=== PATIENT | female | born 1945 | race Caucasian/White ===

== ENCOUNTER 2018-07-19 00:14 | Outpatient (CLI) | payer MEDICARE ==
[2018-07-19 12:30] LABS: #Eosinphils 0.2 thou/uL (0.0-0.7); #Lymphocytes 1.8 thou/uL (1.20-3.40); #Monocytes 0.5 thou/uL (0.11-0.59); #Neutrophils 3.9 thou/uL (1.40-6.50); %Basophils 0.5 % (0.0-1.0); %Eosinophils 3.3 % (0.0-10.0); %Lymphocytes 28.6 % (21.0-51.0); %Monocytes 7.5 % (0.0-10.0); %Neutrophils 60.2 % (42.0-75.0); Hemoglobin 13.3 g/dL (12.0-16.0); Mean Corpuscular HGB CONC 32.7 g/dL (32.0-36.0); Mean Corpuscular Hemoglobin 31.7 pg (27.0-31.0); Mean Platelet Volume 7.4 fL (7.4-10.4); Platelet Count 233 thou/uL (130-400); RBC Distribution Width 11.6 % (11.5-14.5); White Blood Cell (WBC) Count 6.4 thou/uL (4.8-10.8)
[2018-07-19 13:03] LABS: ALT (SGPT) 27 U/L (8-55); AST (SGOT) 37 U/L (5-34); Albumin 4.5 g/dL (3.4-4.8); Alkaline Phosphatase 63 U/L (40-150); Anion Gap 16 mmol/L (10-20); BUN (Urea Nitrogen) 18 mg/dL (9.8-20.1); Bilirubin, Total 0.5 mg/dL (0.2-1.2); Calc. Creatinine Clearance 0 mL/min (70-130); Calcium 9.9 mg/dL (7.8-10.44); Carbon Dioxide 23 mmol/L (23-31); Chloride 105 mmol/L (98-107); Estimated GFR-MDRD 75; Globulin 2.8 g/dL (2.4-3.5); Glucose 73 mg/dL (83-110); Potassium 4.6 mmol/L (3.5-5.1); Protein, Total 7.3 g/dL (6.0-8.3); Sodium 139 mmol/L (136-145)
[2018-07-19 13:10] LABS: PTT 28.5 SEC (22.9-36.1); Prothrombin Time 12.8 SEC (12.0-14.7)
== END 2018-07-19 00:15 | disposition home or self-care (01) ==
LOC: LABBT 00:14
PROVIDERS: ATTEND Internal Medicine Cardiovascular Disease
DX: Z01.812 Encounter for preprocedural laboratory examination (principal)
CPT/HCPCS: 80053; 85025; 85610; 85730

== ENCOUNTER 2018-07-26 05:58 | Day surgery (SDC) | payer MEDICARE ==
[2018-07-19 11:24] VITALS: BMI 34.4
[2018-07-26 07:00] LABS: Cardiac Risk 4.6 (Less than 4.5)
[2018-07-26] MEDS ORDERED: Midazolam HCl 2 mg/2 ml Vial ONE (07:23)
[2018-07-26] MEDS ORDERED: Heparin 10,000 UNITS/1 ML VIAL ONE (07:23)
[2018-07-26] MEDS ORDERED: Fentanyl 100 MCG/2 ML VIAL ONE (07:23)
[2018-07-26] MEDS ORDERED: Verapamil 5 MG/2 ML VIAL ONE (07:24)
[2018-07-26] MEDS ORDERED: Nitroglycerin 100MG/250ML BOT 250 ML ONE (07:24)
[2018-07-26] MEDS ORDERED: Iopamidol 370 76% 100 ML VIAL ONE (10:31)
== END 2018-07-26 11:12 | disposition home or self-care (01) ==
LOC: CCL 05:58
PROVIDERS: ATTEND Internal Medicine Cardiovascular Disease
DX: I42.0 Dilated cardiomyopathy (principal); I10 Essential (primary) hypertension; I44.7 Left bundle-branch block, unspecified; E11.9 Type 2 diabetes mellitus without complications; E78.5 Hyperlipidemia, unspecified; E78.00 Pure hypercholesterolemia, unspecified; Z79.82 Long term (current) use of aspirin; Z79.84 Long term (current) use of oral hypoglycemic drugs; Z79.899 Other long term (current) drug therapy
CPT/HCPCS: 36415; 80061; 93458; 99152; C1769; J1644; J2250; J3010; Q9967

== ENCOUNTER 2022-10-28 09:06 | Inpatient (IN) | payer MEDICARE ==
[2022-10-28 11:04] LABS: #Basophils 0.1 thou/uL (0.0-0.2); #Eosinphils 0.5 thou/uL (0.0-0.7); #Monocytes 0.7 thou/uL (0.11-0.59); #Neutrophils 4.4 thou/uL (1.40-6.50); %Basophils 0.8 % (0.0-1.0); %Eosinophils 6.7 % (0.0-10.0); %Lymphocytes 20.4 % (21.0-51.0); %Monocytes 9.8 % (0.0-10.0); %Neutrophils 61.9 % (42.0-75.0); Hemoglobin 11.3 g/dL (12.0-16.0); Mean Corpuscular HGB CONC 32.8 g/dL (32.0-36.0); Mean Corpuscular Hemoglobin 32.1 pg (27.0-31.0); Mean Platelet Volume 9.6 fL (7.4-10.4); Platelet Count 231 10x3/uL (130-400); RBC Distribution Width 12.5 % (11.5-14.5); Red Blood Cell (RBC) Count 3.52 mill/uL (4.20-5.40); White Blood Cell (WBC) Count 7.2 10x3/uL (4.8-10.8)
[2022-10-28 11:27] LABS: ALT (SGPT) 43 U/L (8-55); AST (SGOT) 46 U/L (5-34); Albumin 4.1 g/dL (3.4-4.8); Alkaline Phosphatase 82 U/L (40-110); Anion Gap 19 mmol/L (10-20); BUN (Urea Nitrogen) 42 mg/dL (9.8-20.1); Bilirubin, Total 0.4 mg/dL (0.2-1.2); Calc. Creatinine Clearance 0 mL/min (70-130); Calcium 9.6 mg/dL (7.8-10.44); Carbon Dioxide 18 mmol/L (23-31); Chloride 107 mmol/L (98-107); Estimated GFR 34; Globulin 2.9 g/dL (2.4-3.5); Glucose 171 mg/dL (83-110); Potassium 5.4 mmol/L (3.5-5.1); Sodium 139 mmol/L (136-145)
[2022-10-28] MEDS ORDERED: Morphine 4 MG/ML VIAL ONE (12:43)
[2022-10-28] MEDS ORDERED: cefTRIAXone (ROCEPHIN) 2 GM VIAL ONE (12:43)
[2022-10-28] MEDS ORDERED: Ondansetron PF 4 MG/2 ML Vial ONE (12:43)
[2022-10-28] MEDS ORDERED: Ketorolac Tromethamine 30 MG/ML VIAL ONE (12:43)
[2022-10-28] MEDS ORDERED: Vancomycin 1 GM/200 ML (FROZEN) BAG ONE (13:13)
[2022-10-28 14:21] LABS: Bacteria/HPF 2+ HPF (None Seen); Bilirubin Negative (Negative); Blood, Urine Negative (Negative); Clarity Turbid (Clear); Glucose, Urine (Dipstick) Normal (Negative); Ketone, Urine Negative (Negative); Leukocyte 500 Leu/uL (Negative); Nitrite Negative (Negative); Protein, Urine (Dipstick) Negative (Neg-Trace); RBC/HPF 0-3 HPF (0-3); Specific Gravity, Urine 1.008 (1.002-1.036); Squamous Epithelial 0-3 HPF (0-3); Urobilinogen Normal mg/dL (Less than 2)
[2022-10-28] MEDS ORDERED: HumaLOG 300 UNITS/3 ML VIAL SC PRN (14:30)
[2022-10-28] MEDS ORDERED: Dextrose 5% in Water 1,000 ML IV PRN (14:30)
[2022-10-28] MEDS ORDERED: Glucagon 1 MG/ML KIT IM PRN (14:30)
[2022-10-28] MEDS ORDERED: Dextrose 50% Abboject 50 ML SYRINGE SLOW IVP PRN (14:30)
[2022-10-28] MEDS ORDERED: Acetaminophen 650 MG Suppository PR PRN (14:30)
[2022-10-28] MEDS ORDERED: [UNRECOGNIZED DRUG - REMARK] IVPB PRN (14:33)
[2022-10-28] MEDS ORDERED: Lactated Ringer's 1,000 ML IV SCH (14:45)
[2022-10-28] MEDS ORDERED: Piperacillin/Tazobactam 3.375 GM in Sodium Chloride 0.9% 100 ML IVPB SCH (15:30)
[2022-10-28] MEDS: Heparin 5,000 UNITS/ML VIAL SC SCH ×2 (16:09→20:36)
[2022-10-28] MEDS: Lactated Ringer's 1,000 ML IV SCH (16:10)
[2022-10-28 17:11] LABS: Hemoglobin A1c 6.6 % (4.0-6.0)
[2022-10-28] MEDS ORDERED: Piperacillin/Tazobactam 4.5 GM in Sodium Chloride 0.9% 100 ML IVPB SCH (18:00)
[2022-10-28] MEDS ORDERED: Vancomycin 1 GM in Premix Bag 1 BAG IVPB SCH (20:00)
[2022-10-28] MEDS: Piperacillin/Tazobactam 3.375 GM in Sodium Chloride 0.9% 100 ML IVPB SCH (20:35)
[2022-10-28] MEDS: Venlafaxine HCl XR 75 MG CAP PO SCH (20:36)
[2022-10-28] MEDS ORDERED: Vancomycin HCl 750 MG in Sodium Chloride 0.9% 250 ML 250 ML IVPB SCH (21:00)
[2022-10-28] MEDS: HYDROcodone/Acetaminophen 10/325 mg Tablet PO PRN (21:53)
[2022-10-29] MEDS: Lactated Ringer's 1,000 ML IV SCH (05:23)
[2022-10-29] MEDS: Piperacillin/Tazobactam 3.375 GM in Sodium Chloride 0.9% 100 ML IVPB SCH ×3 (05:24→21:21)
[2022-10-29 06:19] LABS: #Basophils 0.1 thou/uL (0.0-0.2); #Eosinphils 0.6 thou/uL (0.0-0.7); #Monocytes 0.8 thou/uL (0.11-0.59); #Neutrophils 3.5 thou/uL (1.40-6.50); %Basophils 1.1 % (0.0-1.0); %Eosinophils 9.4 % (0.0-10.0); %Lymphocytes 24.7 % (21.0-51.0); %Monocytes 11.7 % (0.0-10.0); %Neutrophils 52.6 % (42.0-75.0); Mean Corpuscular HGB CONC 31.7 g/dL (32.0-36.0); Mean Corpuscular Hemoglobin 32.2 pg (27.0-31.0); Mean Platelet Volume 9.7 fL (7.4-10.4); Platelet Count 221 10x3/uL (130-400); RBC Distribution Width 12.7 % (11.5-14.5); Red Blood Cell (RBC) Count 3.11 mill/uL (4.20-5.40); White Blood Cell (WBC) Count 6.6 10x3/uL (4.8-10.8)
[2022-10-29 06:25] LABS: Mean Corpuscular Volume 101.3 fl (78.0-98.0)
[2022-10-29 06:39] LABS: Anion Gap 14 mmol/L (10-20); BUN (Urea Nitrogen) 38 mg/dL (9.8-20.1); Calc. Creatinine Clearance 55 mL/min (70-130); Calcium 8.6 mg/dL (7.8-10.44); Carbon Dioxide 21 mmol/L (23-31); Chloride 108 mmol/L (98-107); Estimated GFR 36; Glucose 114 mg/dL (83-110); Sodium 138 mmol/L (136-145)
[2022-10-29] MEDS: Heparin 5,000 UNITS/ML VIAL SC SCH ×3 (08:11→21:20)
[2022-10-29] MEDS ORDERED: Lactated Ringer's 1,000 ML IV SCH (10:42)
[2022-10-29] MEDS: HYDROcodone/Acetaminophen 10/325 mg Tablet PO PRN (12:00)
[2022-10-29] MEDS: Sodium Chloride 0.9% 1,000 ML IV SCH ×2 (12:07→21:20)
[2022-10-29] MEDS: Lorazepam 2 MG/ML VIAL SLOW IVP PRN (13:25)
[2022-10-29] MEDS: VANCOMYCIN 1.25 GM/250 ML BAG 1.25 GM in Premix Bag 1 BAG IVPB SCH (13:25)
[2022-10-29] MEDS ORDERED: Nystatin Powder 15 GM BOT TOP PRN (16:13)
[2022-10-29] MEDS ORDERED: Fluconazole 100 MG TAB PO SCH (16:15)
[2022-10-29] MEDS: QUEtiapine 25 MG TAB PO SCH (21:21)
[2022-10-29] MEDS: Venlafaxine HCl XR 75 MG CAP PO SCH (21:21)
[2022-10-29] MEDS: Aspirin 81 mg Enteric Coated Tablet PO SCH (21:23)
[2022-10-30] MEDS: Piperacillin/Tazobactam 3.375 GM in Sodium Chloride 0.9% 100 ML IVPB SCH ×3 (06:09→20:38)
[2022-10-30] MEDS: Sodium Chloride 0.9% 1,000 ML IV SCH ×3 (06:09→12:56)
[2022-10-30 08:06] LABS: #Eosinphils 0.5 thou/uL (0.0-0.7); #Monocytes 0.5 thou/uL (0.11-0.59); #Neutrophils 3.2 thou/uL (1.40-6.50); %Basophils 0.7 % (0.0-1.0); %Eosinophils 8.6 % (0.0-10.0); %Lymphocytes 23.9 % (21.0-51.0); %Monocytes 8.7 % (0.0-10.0); %Neutrophils 57.4 % (42.0-75.0); Hemoglobin 8.7 g/dL (12.0-16.0); Mean Corpuscular HGB CONC 31.4 g/dL (32.0-36.0); Mean Corpuscular Hemoglobin 31.9 pg (27.0-31.0); Mean Corpuscular Volume 101.5 fl (78.0-98.0); Mean Platelet Volume 9.5 fL (7.4-10.4); Platelet Count 183 10x3/uL (130-400); Red Blood Cell (RBC) Count 2.73 mill/uL (4.20-5.40); White Blood Cell (WBC) Count 5.6 10x3/uL (4.8-10.8)
[2022-10-30 08:29] LABS: Anion Gap 13 mmol/L (10-20); BUN (Urea Nitrogen) 27 mg/dL (9.8-20.1); Calc. Creatinine Clearance 73 mL/min (70-130); Calcium 8.4 mg/dL (7.8-10.44); Carbon Dioxide 21 mmol/L (23-31); Chloride 112 mmol/L (98-107); Estimated GFR 50; Glucose 105 mg/dL (83-110); Potassium 4.5 mmol/L (3.5-5.1); Sodium 141 mmol/L (136-145)
[2022-10-30] MEDS: Heparin 5,000 UNITS/ML VIAL SC SCH ×3 (09:39→20:38)
[2022-10-30] MEDS: Fluconazole 100 MG TAB PO SCH (09:39)
[2022-10-30] MEDS: VANCOMYCIN 1.25 GM/250 ML BAG 1.25 GM in Premix Bag 1 BAG IVPB SCH (12:56)
[2022-10-30 12:58] LABS: Vancomycin, Trough 13.8 ug/mL
[2022-10-30] MEDS: Ondansetron PF 4 MG/2 ML Vial IVP PRN (18:25)
[2022-10-30] MEDS: Venlafaxine HCl XR 75 MG CAP PO SCH (20:36)
[2022-10-30] MEDS: QUEtiapine 25 MG TAB PO SCH (20:37)
[2022-10-30] MEDS: Aspirin 81 mg Enteric Coated Tablet PO SCH (20:37)
[2022-10-31] MEDS: Sodium Chloride 0.9% 1,000 ML IV SCH ×2 (06:25→17:05)
[2022-10-31] MEDS: Piperacillin/Tazobactam 3.375 GM in Sodium Chloride 0.9% 100 ML IVPB SCH ×3 (07:18→21:12)
[2022-10-31] MEDS: Heparin 5,000 UNITS/ML VIAL SC SCH ×3 (07:18→21:13)
[2022-10-31] MEDS: Fluconazole 100 MG TAB PO SCH (07:18)
[2022-10-31 08:33] LABS: Anion Gap 15 mmol/L (10-20); BUN (Urea Nitrogen) 14 mg/dL (9.8-20.1); Calc. Creatinine Clearance 94 mL/min (70-130); Calcium 8.8 mg/dL (7.8-10.44); Carbon Dioxide 17 mmol/L (23-31); Chloride 111 mmol/L (98-107); Estimated GFR 68; Glucose 160 mg/dL (83-110); Potassium 4.3 mmol/L (3.5-5.1); Sodium 139 mmol/L (136-145)
[2022-10-31] MEDS ORDERED: Metoprolol Tartrate 5 MG/5 ML VIAL IVP SCH (09:45)
[2022-10-31] MEDS: VANCOMYCIN 1.25 GM/250 ML BAG 1.25 GM in Premix Bag 1 BAG IVPB SCH (12:28)
[2022-10-31] MEDS: Ondansetron PF 4 MG/2 ML Vial IVP PRN (14:34)
[2022-10-31] MEDS: Lorazepam 2 MG/ML VIAL SLOW IVP PRN (17:04)
[2022-10-31] MEDS: Venlafaxine HCl XR 75 MG CAP PO SCH (21:12)
[2022-10-31] MEDS: QUEtiapine 25 MG TAB PO SCH (21:12)
[2022-10-31] MEDS: Aspirin 81 mg Enteric Coated Tablet PO SCH (21:14)
[2022-11-01] MEDS ORDERED: Metoprolol Tartrate 5 MG/5 ML VIAL IVP SCH (03:49)
[2022-11-01] MEDS: Sodium Chloride 0.9% 1,000 ML IV SCH (04:58)
[2022-11-01] MEDS: Piperacillin/Tazobactam 3.375 GM in Sodium Chloride 0.9% 100 ML IVPB SCH ×3 (05:00→20:10)
[2022-11-01] MEDS: Heparin 5,000 UNITS/ML VIAL SC SCH ×3 (08:21→20:10)
[2022-11-01] MEDS ORDERED: Furosemide 40 MG/4 ML VIAL SLOW IVP SCH ×2 (09:00→15:30)
[2022-11-01] MEDS: Diltiazem 125 MG in Sodium Chloride 0.9% 100 ML IVPB SCH (09:49)
[2022-11-01 10:26] LABS: #Basophils 0.1 thou/uL (0.0-0.2); #Eosinphils 0.4 thou/uL (0.0-0.7); #Monocytes 0.9 thou/uL (0.11-0.59); #Neutrophils 9.6 thou/uL (1.40-6.50); %Basophils 0.6 % (0.0-1.0); %Eosinophils 3.2 % (0.0-10.0); %Lymphocytes 9.6 % (21.0-51.0); %Monocytes 7.4 % (0.0-10.0); %Neutrophils 78.5 % (42.0-75.0); Hemoglobin 10.6 g/dL (12.0-16.0); Mean Corpuscular HGB CONC 31.5 g/dL (32.0-36.0); Mean Corpuscular Hemoglobin 32.5 pg (27.0-31.0); Mean Corpuscular Volume 103.4 fl (78.0-98.0); Mean Platelet Volume 9.6 fL (7.4-10.4); Platelet Count 224 10x3/uL (130-400); RBC Distribution Width 13.1 % (11.5-14.5); Red Blood Cell (RBC) Count 3.26 mill/uL (4.20-5.40); White Blood Cell (WBC) Count 12.2 10x3/uL (4.8-10.8)
[2022-11-01 10:43] LABS: Anion Gap 12 mmol/L (10-20); BUN (Urea Nitrogen) 10 mg/dL (9.8-20.1); Calc. Creatinine Clearance 93 mL/min (70-130); Calcium 8.8 mg/dL (7.8-10.44); Carbon Dioxide 20 mmol/L (23-31); Chloride 113 mmol/L (98-107); Estimated GFR 68; Glucose 156 mg/dL (83-110); Potassium 4.3 mmol/L (3.5-5.1); Sodium 141 mmol/L (136-145)
[2022-11-01 11:04] LABS: Free T4 (Free Thyroxine) 0.97 ng/dL (0.70-1.48); Thyroid Stimulating Hormone 2.6105 uIU/mL (0.35-4.94)
[2022-11-01 13:44] LABS: Vancomycin, Trough 7.5 ug/mL
[2022-11-01] MEDS: Vancomycin 1.5 GRAM/300 ML BAG 1.5 GM in Premix Bag 1 BAG IVPB SCH (14:50)
[2022-11-01] MEDS: Lorazepam 2 MG/ML VIAL SLOW IVP PRN (15:19)
[2022-11-01] MEDS: VANCOMYCIN 1.25 GM/250 ML BAG 1.25 GM in Premix Bag 1 BAG IVPB SCH (16:31)
[2022-11-01] MEDS ORDERED: Digoxin 0.5 MG/2 ML AMP SLOW IVP SCH (17:00)
[2022-11-01] MEDS: Aspirin 81 mg Enteric Coated Tablet PO SCH (20:10)
[2022-11-01] MEDS: QUEtiapine 25 MG TAB PO SCH (20:10)
[2022-11-01] MEDS: Venlafaxine HCl XR 75 MG CAP PO SCH (20:10)
[2022-11-02 04:54] LABS: #Basophils 0.1 thou/uL (0.0-0.2); #Eosinphils 0.4 thou/uL (0.0-0.7); #Monocytes 1.2 thou/uL (0.11-0.59); #Neutrophils 8.2 thou/uL (1.40-6.50); %Basophils 0.7 % (0.0-1.0); %Eosinophils 3.3 % (0.0-10.0); %Lymphocytes 13.7 % (21.0-51.0); %Monocytes 10.6 % (0.0-10.0); %Neutrophils 71.2 % (42.0-75.0); Hemoglobin 10.5 g/dL (12.0-16.0); Mean Corpuscular HGB CONC 30.4 g/dL (32.0-36.0); Mean Corpuscular Hemoglobin 31.6 pg (27.0-31.0); Mean Corpuscular Volume 103.9 fl (78.0-98.0); Mean Platelet Volume 10.4 fL (7.4-10.4); Platelet Count 177 10x3/uL (130-400); RBC Distribution Width 13.2 % (11.5-14.5); Red Blood Cell (RBC) Count 3.32 mill/uL (4.20-5.40); White Blood Cell (WBC) Count 11.5 10x3/uL (4.8-10.8)
[2022-11-02 05:24] LABS: Anion Gap 14 mmol/L (10-20); BUN (Urea Nitrogen) 10 mg/dL (9.8-20.1); Calc. Creatinine Clearance 92 mL/min (70-130); Calcium 8.8 mg/dL (7.8-10.44); Carbon Dioxide 20 mmol/L (23-31); Chloride 109 mmol/L (98-107); Estimated GFR 67; Glucose 118 mg/dL (83-110); Potassium 4.2 mmol/L (3.5-5.1); Sodium 139 mmol/L (136-145)
[2022-11-02] MEDS: Piperacillin/Tazobactam 3.375 GM in Sodium Chloride 0.9% 100 ML IVPB SCH ×3 (06:19→21:12)
[2022-11-02] MEDS: Diltiazem 125 MG in Sodium Chloride 0.9% 100 ML IVPB SCH (08:35)
[2022-11-02] MEDS: Heparin 5,000 UNITS/ML VIAL SC SCH (08:42)
[2022-11-02] MEDS ORDERED: Furosemide 40 MG/4 ML VIAL SLOW IVP SCH (09:15)
[2022-11-02] MEDS ORDERED: Ipratropium/Albuterol 3 ML NEB NEB SCH (09:15)
[2022-11-02] MEDS ORDERED: Ketamine In 0.9 % NaCl 50 MG/5 ML SYRINGE ONE (12:23)
[2022-11-02] MEDS ORDERED: Midazolam HCl 2 mg/2 ml Vial ONE (12:23)
[2022-11-02] MEDS ORDERED: Lidocaine 1% PF 5 ML VIAL ONE (12:32)
[2022-11-02] MEDS ORDERED: PROPOFOL 200 MG/20 ML VIAL ONE (12:32)
[2022-11-02] MEDS ORDERED: Ipratropium/Albuterol 3 ML NEB ONE (13:20)
[2022-11-02] MEDS: Vancomycin 1.5 GRAM/300 ML BAG 1.5 GM in Premix Bag 1 BAG IVPB SCH (16:31)
[2022-11-02] MEDS ORDERED: Ipratropium/Albuterol 3 ML NEB NEB PRN (17:53)
[2022-11-02] MEDS: Venlafaxine HCl XR 75 MG CAP PO SCH (21:13)
[2022-11-02] MEDS: HYDROcodone/Acetaminophen 10/325 mg Tablet PO PRN (21:13)
[2022-11-02] MEDS: Spironolactone 25 MG TAB PO SCH (21:13)
[2022-11-02] MEDS: QUEtiapine 25 MG TAB PO SCH (21:13)
[2022-11-03] MEDS: Piperacillin/Tazobactam 3.375 GM in Sodium Chloride 0.9% 100 ML IVPB SCH ×3 (05:16→20:58)
[2022-11-03] MEDS ORDERED: Iopamidol-370 76% 500 ML MDV (1 ML CHARGE) ONE (08:45)
[2022-11-03] MEDS ORDERED: Albumin 25% 25 GM/100 ML BOT IVPB SCH (09:15)
[2022-11-03] MEDS ORDERED: Furosemide 20 MG/2 ML VIAL SLOW IVP SCH (09:15)
[2022-11-03] MEDS ORDERED: fentaNYL PF 100 MCG/2 ML SYRINGE ONE (12:37)
[2022-11-03] MEDS ORDERED: Bupivacaine PF 0.5% 30 ML VIAL ONE (12:49)
[2022-11-03] MEDS ORDERED: Bacitracin Zinc Ointment 30 gm TUBE ONE (12:50)
[2022-11-03] MEDS ORDERED: Sodium Chloride 0.9% 100 ML ONE (13:01)
[2022-11-03] MEDS ORDERED: Piperacillin/Tazobactam 3.375 GM VIAL ONE (13:01)
[2022-11-03 14:14] LABS: Actual Bicarbonate (HCO3a) 25.1 mEq/L (22-28); Base Excess (BEa) -0.3 mEq/L (-2.0 to +3.0); CO2 Tension 44.4 mmHg (35.0-45.0); Calcium, Ionized (arterial) 1.19 mmol/L (1.12-1.30); Carboxyhemoglobin (COHb) 0.1 gm% (0.0-3.0); Hematocrit-ABG 35 % (36.0-47.0); Hemoglobin (Hb) 11.9 g/dL (12.0-16.0); O2 Tension (PaO2), arterial 171.2 mmHg (> 70.0); Potassium - ABG Lab 3.59 mmol/L (3.70-5.30); pH, Arterial 7.371 (7.35-7.45)
[2022-11-03 14:21] LABS: #Basophils 0.1 thou/uL (0.0-0.2); #Eosinphils 0.7 thou/uL (0.0-0.7); #Monocytes 0.7 thou/uL (0.11-0.59); #Neutrophils 5.7 thou/uL (1.40-6.50); %Basophils 0.8 % (0.0-1.0); %Eosinophils 7.5 % (0.0-10.0); %Lymphocytes 17.2 % (21.0-51.0); %Monocytes 7.5 % (0.0-10.0); %Neutrophils 66.5 % (42.0-75.0); Hemoglobin 10.3 g/dL (12.0-16.0); Mean Corpuscular HGB CONC 32.3 g/dL (32.0-36.0); Mean Corpuscular Hemoglobin 32.8 pg (27.0-31.0); Mean Corpuscular Volume 101.6 fl (78.0-98.0); Mean Platelet Volume 10.4 fL (7.4-10.4); Platelet Count 210 10x3/uL (130-400); RBC Distribution Width 13.6 % (11.5-14.5); Red Blood Cell (RBC) Count 3.14 mill/uL (4.20-5.40); White Blood Cell (WBC) Count 8.6 10x3/uL (4.8-10.8)
[2022-11-03 14:22] LABS: Puncture Site RRA
[2022-11-03 14:37] LABS: INR-International Normal Ratio 1.2; Prothrombin Time 15.4 sec (12.0-14.7)
[2022-11-03 14:38] LABS: PTT 42.6 sec (22.9-36.1)
[2022-11-03 14:39] LABS: D-Dimer Test 1.51 *mcg/mL (0.27-0.43)
[2022-11-03] MEDS ORDERED: Vancomycin (BATCH) 1.5 GRAM/300 ML BAG ONE (15:00)
[2022-11-03 15:05] LABS: CKMB 1.4 ng/mL (0-6.6)
[2022-11-03] MEDS: Vancomycin 1.5 GRAM/300 ML BAG 1.5 GM in Premix Bag 1 BAG IVPB SCH (15:08)
[2022-11-03] MEDS ORDERED: Furosemide 40 MG/4 ML VIAL ONE (15:36)
[2022-11-03] MEDS ORDERED: Furosemide 40 MG/4 ML VIAL SLOW IVP SCH (16:15)
[2022-11-03 18:42] LABS: SARS-CoV-2 NAA Rapid Test Not Detected (NotDetected)
[2022-11-03 20:30] LABS: Calcium 9.3 mg/dL (7.8-10.44); Chloride 107 mmol/L (98-107); Potassium 3.9 mmol/L (3.5-5.1); Sodium 140 mmol/L (136-145)
[2022-11-03 20:31] LABS: Glucose 139 mg/dL (83-110)
[2022-11-03 20:32] LABS: Anion Gap 16 mmol/L (10-20); Carbon Dioxide 21 mmol/L (23-31)
[2022-11-03 20:34] LABS: Calc. Creatinine Clearance 93 mL/min (70-130); Estimated GFR 61
[2022-11-03 20:35] LABS: BUN (Urea Nitrogen) 16 mg/dL (9.8-20.1)
[2022-11-03] MEDS: QUEtiapine 25 MG TAB PO SCH (20:58)
[2022-11-03] MEDS: Lorazepam 2 MG/ML VIAL SLOW IVP PRN (20:58)
[2022-11-03] MEDS: Spironolactone 25 MG TAB PO SCH (20:58)
[2022-11-04] MEDS: Venlafaxine HCl XR 75 MG CAP PO SCH ×2 (00:30→20:32)
[2022-11-04] MEDS: Albumin 25% 25 GM/100 ML BOT IVPB SCH ×4 (00:30→18:07)
[2022-11-04 03:59] LABS: #Basophils 0.1 thou/uL (0.0-0.2); #Eosinphils 0.5 thou/uL (0.0-0.7); #Monocytes 0.8 thou/uL (0.11-0.59); #Neutrophils 7.4 thou/uL (1.40-6.50); %Basophils 0.5 % (0.0-1.0); %Eosinophils 5.2 % (0.0-10.0); %Lymphocytes 13.2 % (21.0-51.0); %Monocytes 8.1 % (0.0-10.0); %Neutrophils 72.5 % (42.0-75.0); Mean Corpuscular HGB CONC 33.1 g/dL (32.0-36.0); Mean Corpuscular Hemoglobin 32.8 pg (27.0-31.0); Mean Platelet Volume 10.2 fL (7.4-10.4); Platelet Count 208 10x3/uL (130-400); RBC Distribution Width 13.1 % (11.5-14.5); Red Blood Cell (RBC) Count 3.05 mill/uL (4.20-5.40); White Blood Cell (WBC) Count 10.3 10x3/uL (4.8-10.8)
[2022-11-04 04:20] LABS: Anion Gap 15 mmol/L (10-20); BUN (Urea Nitrogen) 17 mg/dL (9.8-20.1); Calc. Creatinine Clearance 93 mL/min (70-130); Calcium 9.2 mg/dL (7.8-10.44); Carbon Dioxide 26 mmol/L (23-31); Chloride 105 mmol/L (98-107); Estimated GFR 61; Glucose 109 mg/dL (83-110); Potassium 3.6 mmol/L (3.5-5.1); Sodium 142 mmol/L (136-145)
[2022-11-04] MEDS: Piperacillin/Tazobactam 3.375 GM in Sodium Chloride 0.9% 100 ML IVPB SCH ×3 (04:25→22:54)
[2022-11-04] MEDS ORDERED: Furosemide 40 MG/4 ML VIAL SLOW IVP SCH ×2 (09:00→20:00)
[2022-11-04] MEDS: Vancomycin 1.5 GRAM/300 ML BAG 1.5 GM in Premix Bag 1 BAG IVPB SCH (14:42)
[2022-11-04] MEDS: Lorazepam 2 MG/ML VIAL SLOW IVP PRN (15:50)
[2022-11-04] MEDS: hydrALAZINE 20 MG/ML VIAL SLOW IVP PRN (18:07)
[2022-11-04] MEDS ORDERED: Labetalol HCl 100 MG/20 ML VIAL ONE (19:06)
[2022-11-04] MEDS ORDERED: Labetalol HCl 100 MG/20 ML VIAL SLOW IVP SCH (19:15)
[2022-11-04 20:22] LABS: Anion Gap 18 mmol/L (10-20); BUN (Urea Nitrogen) 18 mg/dL (9.8-20.1); Calc. Creatinine Clearance 92 mL/min (70-130); Calcium 9.5 mg/dL (7.8-10.44); Carbon Dioxide 24 mmol/L (23-31); Chloride 105 mmol/L (98-107); Estimated GFR 60; Glucose 221 mg/dL (83-110); Magnesium 1.8 mg/dL (1.6-2.6); Potassium 3.6 mmol/L (3.5-5.1); Sodium 143 mmol/L (136-145)
[2022-11-04] MEDS: QUEtiapine 25 MG TAB PO SCH (20:29)
[2022-11-04] MEDS: Spironolactone 25 MG TAB PO SCH (20:29)
[2022-11-04] MEDS ORDERED: Potassium Chloride 20 MEQ in Premix Bag 1 BAG IVPB SCH (21:00)
[2022-11-04] MEDS ORDERED: Magnesium 2 GM/50 ML(in water) 2 GM in Premix Bag 1 BAG IVPB SCH (21:00)
[2022-11-05 04:28] LABS: Anion Gap 15 mmol/L (10-20); BUN (Urea Nitrogen) 17 mg/dL (9.8-20.1); Calc. Creatinine Clearance 98 mL/min (70-130); Calcium 9.3 mg/dL (7.8-10.44); Carbon Dioxide 28 mmol/L (23-31); Chloride 105 mmol/L (98-107); Estimated GFR 65; Glucose 152 mg/dL (83-110); Potassium 3.6 mmol/L (3.5-5.1); Sodium 144 mmol/L (136-145)
[2022-11-05] MEDS: Piperacillin/Tazobactam 3.375 GM in Sodium Chloride 0.9% 100 ML IVPB SCH ×3 (04:58→21:38)
[2022-11-05] MEDS ORDERED: Potassium Chloride 20 MEQ TAB PO SCH (09:00)
[2022-11-05] MEDS: Furosemide 40 MG/4 ML VIAL SLOW IVP SCH ×2 (09:41→21:37)
[2022-11-05 14:31] LABS: Vancomycin, Trough 13.2 ug/mL
[2022-11-05] MEDS: Vancomycin 1.5 GRAM/300 ML BAG 1.5 GM in Premix Bag 1 BAG IVPB SCH (18:25)
[2022-11-05] MEDS ORDERED: Furosemide 40 MG/4 ML VIAL SLOW IVP SCH (18:45)
[2022-11-05] MEDS ORDERED: hydrOXYzine 25 MG TAB PO SCH (18:45)
[2022-11-05 19:10] LABS: Troponin I 0.062 ng/mL (< 0.028)
[2022-11-05] MEDS: QUEtiapine 25 MG TAB PO SCH (21:37)
[2022-11-05] MEDS: Spironolactone 25 MG TAB PO SCH (21:37)
[2022-11-05] MEDS: Venlafaxine HCl XR 75 MG CAP PO SCH (21:37)
[2022-11-05 22:02] LABS: Troponin I 0.068 ng/mL (< 0.028)
[2022-11-06 01:26] LABS: Troponin I 0.098 ng/mL (< 0.028)
[2022-11-06 05:18] LABS: Anion Gap 13 mmol/L (10-20); BUN (Urea Nitrogen) 14 mg/dL (9.8-20.1); Calc. Creatinine Clearance 101 mL/min (70-130); Calcium 9.5 mg/dL (7.8-10.44); Carbon Dioxide 33 mmol/L (23-31); Chloride 100 mmol/L (98-107); Estimated GFR 68; Glucose 115 mg/dL (83-110); Sodium 143 mmol/L (136-145)
[2022-11-06] MEDS: Piperacillin/Tazobactam 3.375 GM in Sodium Chloride 0.9% 100 ML IVPB SCH ×2 (05:38→15:27)
[2022-11-06] MEDS: Furosemide 40 MG/4 ML VIAL SLOW IVP SCH ×2 (09:21→20:48)
[2022-11-06] MEDS: hydrALAZINE 20 MG/ML VIAL SLOW IVP PRN (12:03)
[2022-11-06] MEDS: Potassium Chloride 20 MEQ TAB PO SCH ×2 (12:04→15:26)
[2022-11-06] MEDS ORDERED: Regadenoson 0.4 MG/5 ML SYRINGE ONE (13:22)
[2022-11-06] MEDS ORDERED: hydrALAZINE 25 MG TAB PO SCH (15:45)
[2022-11-06] MEDS: hydrALAZINE 25 MG TAB PO SCH (20:48)
[2022-11-06] MEDS: QUEtiapine 25 MG TAB PO SCH (20:51)
[2022-11-06] MEDS: Venlafaxine HCl XR 75 MG CAP PO SCH (20:51)
[2022-11-06] MEDS: Spironolactone 25 MG TAB PO SCH (20:51)
[2022-11-06] MEDS: Vancomycin 1.5 GRAM/300 ML BAG 1.5 GM in Premix Bag 1 BAG IVPB SCH (21:50)
[2022-11-07] MEDS: Piperacillin/Tazobactam 3.375 GM in Sodium Chloride 0.9% 100 ML IVPB SCH ×4 (00:11→22:49)
[2022-11-07 04:53] LABS: #Basophils 0.1 thou/uL (0.0-0.2); #Eosinphils 0.7 thou/uL (0.0-0.7); #Monocytes 0.7 thou/uL (0.11-0.59); #Neutrophils 4.3 thou/uL (1.40-6.50); %Basophils 0.9 % (0.0-1.0); %Eosinophils 9.9 % (0.0-10.0); %Lymphocytes 16.9 % (21.0-51.0); %Monocytes 9.9 % (0.0-10.0); Hemoglobin 9.7 g/dL (12.0-16.0); Mean Corpuscular HGB CONC 33.2 g/dL (32.0-36.0); Mean Corpuscular Hemoglobin 32.3 pg (27.0-31.0); Mean Corpuscular Volume 97.3 fl (78.0-98.0); Mean Platelet Volume 9.9 fL (7.4-10.4); Platelet Count 202 10x3/uL (130-400); RBC Distribution Width 12.9 % (11.5-14.5)
[2022-11-07 05:23] LABS: ALT (SGPT) 27 U/L (8-55); AST (SGOT) 29 U/L (5-34); Albumin 3.7 g/dL (3.4-4.8); Alkaline Phosphatase 62 U/L (40-110); Anion Gap 12 mmol/L (10-20); BUN (Urea Nitrogen) 14 mg/dL (9.8-20.1); Bilirubin, Total 0.9 mg/dL (0.2-1.2); Calc. Creatinine Clearance 101 mL/min (70-130); Calcium 9.5 mg/dL (7.8-10.44); Carbon Dioxide 33 mmol/L (23-31); Chloride 100 mmol/L (98-107); Estimated GFR 68; Globulin 2.8 g/dL (2.4-3.5); Glucose 133 mg/dL (83-110); Magnesium 1.8 mg/dL (1.6-2.6); Potassium 3.2 mmol/L (3.5-5.1); Protein, Total 6.5 g/dL (5.8-8.1); Sodium 142 mmol/L (136-145)
[2022-11-07] MEDS ORDERED: Furosemide 100 MG/10 ML VIAL SLOW IVP SCH (07:45)
[2022-11-07] MEDS ORDERED: Potassium Chloride 20 MEQ TAB PO SCH ×2 (08:00→17:00)
[2022-11-07] MEDS: Empagliflozin 10 MG TAB PO SCH (11:06)
[2022-11-07] MEDS: hydrALAZINE 25 MG TAB PO SCH ×2 (11:07→21:12)
[2022-11-07 14:59] LABS: Vancomycin, Trough 15.1 ug/mL
[2022-11-07] MEDS: Furosemide 100 MG/10 ML VIAL SLOW IVP SCH (15:52)
[2022-11-07] MEDS: Vancomycin 1.5 GRAM/300 ML BAG 1.5 GM in Premix Bag 1 BAG IVPB SCH (17:19)
[2022-11-07] MEDS: Spironolactone 25 MG TAB PO SCH (18:10)
[2022-11-07] MEDS: VANCOMYCIN 1.75 GM/500 ML BAG 1.75 GM in Premix Bag 1 BAG IVPB SCH (18:10)
[2022-11-07] MEDS: Venlafaxine HCl XR 75 MG CAP PO SCH (21:09)
[2022-11-07] MEDS: QUEtiapine 25 MG TAB PO SCH (21:10)
[2022-11-08] MEDS: Piperacillin/Tazobactam 3.375 GM in Sodium Chloride 0.9% 100 ML IVPB SCH ×3 (05:47→20:51)
[2022-11-08] MEDS: Furosemide 100 MG/10 ML VIAL SLOW IVP SCH (05:47)
[2022-11-08] MEDS: Potassium Chloride 20 MEQ TAB PO SCH (09:40)
[2022-11-08] MEDS: Empagliflozin 10 MG TAB PO SCH (09:41)
[2022-11-08] MEDS: hydrALAZINE 25 MG TAB PO SCH ×2 (09:41→20:50)
[2022-11-08] MEDS: VANCOMYCIN 1.75 GM/500 ML BAG 1.75 GM in Premix Bag 1 BAG IVPB SCH (17:02)
[2022-11-08] MEDS: Spironolactone 25 MG TAB PO SCH (17:03)
[2022-11-08] MEDS: Venlafaxine HCl XR 75 MG CAP PO SCH (20:50)
[2022-11-08] MEDS: QUEtiapine 25 MG TAB PO SCH (20:51)
[2022-11-09 04:44] LABS: #Basophils 0.1 thou/uL (0.0-0.2); #Eosinphils 0.8 thou/uL (0.0-0.7); #Monocytes 0.9 thou/uL (0.11-0.59); #Neutrophils 3.4 thou/uL (1.40-6.50); %Eosinophils 11.9 % (0.0-10.0); %Lymphocytes 22.8 % (21.0-51.0); %Monocytes 13.4 % (0.0-10.0); %Neutrophils 50.6 % (42.0-75.0); Hemoglobin 10.2 g/dL (12.0-16.0); Mean Corpuscular HGB CONC 32.7 g/dL (32.0-36.0); Mean Corpuscular Hemoglobin 31.8 pg (27.0-31.0); Mean Corpuscular Volume 97.2 fl (78.0-98.0); Platelet Count 222 10x3/uL (130-400); RBC Distribution Width 12.9 % (11.5-14.5); Red Blood Cell (RBC) Count 3.21 mill/uL (4.20-5.40); White Blood Cell (WBC) Count 6.7 10x3/uL (4.8-10.8)
[2022-11-09 05:14] LABS: Anion Gap 16 mmol/L (10-20); BUN (Urea Nitrogen) 18 mg/dL (9.8-20.1); Calc. Creatinine Clearance 68 mL/min (70-130); Calcium 9.8 mg/dL (7.8-10.44); Carbon Dioxide 31 mmol/L (23-31); Chloride 99 mmol/L (98-107); Estimated GFR 46; Glucose 126 mg/dL (83-110); Potassium 3.1 mmol/L (3.5-5.1); Sodium 143 mmol/L (136-145)
[2022-11-09] MEDS: Piperacillin/Tazobactam 3.375 GM in Sodium Chloride 0.9% 100 ML IVPB SCH ×3 (06:06→21:56)
[2022-11-09 09:07] VITALS: BMI 41.1
[2022-11-09] MEDS: Furosemide 40 MG TAB PO SCH (09:11)
[2022-11-09] MEDS: hydrALAZINE 25 MG TAB PO SCH ×2 (09:12→20:27)
[2022-11-09] MEDS: Potassium Chloride 20 MEQ TAB PO SCH (09:12)
[2022-11-09] MEDS: Empagliflozin 10 MG TAB PO SCH (09:12)
[2022-11-09 15:27] LABS: Vancomycin, Trough 21.3 ug/mL
[2022-11-09] MEDS: VANCOMYCIN 1.75 GM/500 ML BAG 1.75 GM in Premix Bag 1 BAG IVPB SCH (17:21)
[2022-11-09] MEDS: Spironolactone 25 MG TAB PO SCH (17:23)
[2022-11-09] MEDS: QUEtiapine 25 MG TAB PO SCH (20:27)
[2022-11-09] MEDS: Venlafaxine HCl XR 75 MG CAP PO SCH (20:27)
[2022-11-10] MEDS ORDERED: Vancomycin 1.5 GRAM/300 ML BAG 1.5 GM in Premix Bag 1 BAG IVPB SCH (05:00)
[2022-11-10] MEDS ORDERED: Bacitracin Zinc Ointment 30 gm TUBE ONE ×2 (06:39→08:24)
[2022-11-10] MEDS ORDERED: Bupivacaine PF 0.5% 30 ML VIAL ONE ×2 (06:39→08:24)
[2022-11-10] MEDS ORDERED: Sodium Chloride 0.9% 100 ML ONE (07:14)
[2022-11-10] MEDS ORDERED: Piperacillin/Tazobactam 3.375 GM VIAL ONE (07:14)
[2022-11-10] MEDS ORDERED: fentaNYL PF 100 MCG/2 ML SYRINGE ONE (08:32)
[2022-11-10] MEDS ORDERED: Ketamine 50 MG/ML (10ML VIAL) ONE (08:32)
[2022-11-10] MEDS ORDERED: Succinylcholine 200 MG/10 ml SYRINGE FS ONE (08:48)
[2022-11-10] MEDS ORDERED: PROPOFOL 200 MG/20 ML VIAL ONE (08:48)
[2022-11-10] MEDS ORDERED: ePHEDrine Sulfate 50 MG/10 ML VIAL ONE (08:48)
[2022-11-10] MEDS ORDERED: Ondansetron HCl/PF 4 MG/2 ML Vial IVP PRN (10:03)
[2022-11-10] MEDS ORDERED: Promethazine HCl 25 MG/ML VIAL IM PRN (10:03)
[2022-11-10] MEDS ORDERED: HYDROcodone/Acetaminophen 7.5/325 mg Tablet PO PRN (10:21)
[2022-11-10] MEDS ORDERED: Morphine 4 MG/ML VIAL SLOW IVP PRN (10:22)
[2022-11-10] MEDS ORDERED: Colchicine 0.6 MG TAB PO SCH (10:30)
[2022-11-10] MEDS: Potassium Chloride 20 MEQ TAB PO SCH (12:40)
[2022-11-10] MEDS: hydrALAZINE 25 MG TAB PO SCH ×2 (12:40→21:12)
[2022-11-10] MEDS: Furosemide 40 MG TAB PO SCH (12:41)
[2022-11-10] MEDS: Empagliflozin 10 MG TAB PO SCH (12:41)
[2022-11-10] MEDS: Piperacillin/Tazobactam 3.375 GM in Sodium Chloride 0.9% 100 ML IVPB SCH ×3 (15:18→21:09)
[2022-11-10] MEDS: Spironolactone 25 MG TAB PO SCH (17:24)
[2022-11-10] MEDS: QUEtiapine 25 MG TAB PO SCH (21:11)
[2022-11-10] MEDS: Venlafaxine HCl XR 75 MG CAP PO SCH (21:12)
[2022-11-10] MEDS: Colchicine 0.6 MG TAB PO SCH (21:12)
[2022-11-11] MEDS ORDERED: VANCOMYCIN 1.25 GM/250 ML BAG 1.25 GM in Premix Bag 1 BAG IVPB SCH (05:00)
[2022-11-11] MEDS: Piperacillin/Tazobactam 3.375 GM in Sodium Chloride 0.9% 100 ML IVPB SCH ×2 (06:46→18:23)
[2022-11-11] MEDS: hydrALAZINE 25 MG TAB PO SCH (09:34)
[2022-11-11] MEDS: Furosemide 40 MG TAB PO SCH (09:34)
[2022-11-11] MEDS: Potassium Chloride 20 MEQ TAB PO SCH (09:35)
[2022-11-11] MEDS: Colchicine 0.6 MG TAB PO SCH (09:36)
[2022-11-11] MEDS: Empagliflozin 10 MG TAB PO SCH (09:36)
[2022-11-11 16:29] VITALS: BP 140/64; TEMP 98
[2022-11-11 16:47] LABS: Uric Acid-Urine 40.5 mg/dL
[2022-11-11] MEDS: Spironolactone 25 MG TAB PO SCH (18:24)
== END 2022-11-11 18:50 | disposition home or self-care (01) | DRG 513 ==
LOC: ERS 09:06 → T4-B 14:40 → 2NO 10-31 13:41 → IMCU/EMU 11-03 19:34 → 2NO 11-05 13:53
PROVIDERS: ADMIT Hospitalist; ATTEND Internal Medicine
PROC: B246ZZ4 Ultrasonography of Right and Left Heart, Transesophageal (ICD-10-PCS; 2022-11-02)
PROC: 5A2204Z Restoration of Cardiac Rhythm, Single (ICD-10-PCS; 2022-11-02)
PROC: 4A033R1 Measurement of Arterial Saturation, Peripheral, Percutaneous Approach (ICD-10-PCS; 2022-11-03)
PROC: 30233J1 Transfusion of Nonautologous Serum Albumin into Peripheral Vein, Percutaneous Approach (ICD-10-PCS; 2022-11-03)
PROC: 0JDK0ZZ Extraction of Left Hand Subcutaneous Tissue and Fascia, Open Approach (ICD-10-PCS; principal; 2022-11-10)
DX: M10.9 Gout, unspecified (principal); I50.33 Acute on chronic diastolic (congestive) heart failure; J96.01 Acute respiratory failure with hypoxia; N17.9 Acute kidney failure, unspecified; M86.8X8 Other osteomyelitis, other site; I42.0 Dilated cardiomyopathy; N30.00 Acute cystitis without hematuria; R04.2 Hemoptysis; I48.92 Unspecified atrial flutter; J98.11 Atelectasis; D68.32 Hemorrhagic disorder due to extrinsic circulating anticoagulants; I47.20 Ventricular tachycardia, unspecified; Z68.41 Body mass index [BMI] 40.0-44.9, adult; E11.9 Type 2 diabetes mellitus without complications; E78.5 Hyperlipidemia, unspecified; E11.40 Type 2 diabetes mellitus with diabetic neuropathy, unspecified; Z96.652 Presence of left artificial knee joint; E87.5 Hyperkalemia; E66.01 Morbid (severe) obesity due to excess calories; F39 Unspecified mood [affective] disorder; L03.012 Cellulitis of left finger; I44.7 Left bundle-branch block, unspecified; I11.0 Hypertensive heart disease with heart failure; Z20.822 Contact with and (suspected) exposure to COVID-19; E87.6 Hypokalemia; I49.5 Sick sinus syndrome; T45.515A Adverse effect of anticoagulants, initial encounter; Z95.0 Presence of cardiac pacemaker; Z98.890 Other specified postprocedural states; Z90.49 Acquired absence of other specified parts of digestive tract; Z98.51 Tubal ligation status; Z88.8 Allergy status to other drugs, medicaments and biological substances; Z79.82 Long term (current) use of aspirin; Z79.899 Other long term (current) drug therapy; Z79.84 Long term (current) use of oral hypoglycemic drugs
CPT/HCPCS: 0439T; 36415; 36416; 36600; 71045; 71275; 78452; 80048; 80053; 80202; 81003; 81015; 82553; 82805; 83036; 83605; 83735; 83880; 84145; 84439; 84443; 84484; 84560; 85025; 85379; 85610; 85652; 85730; 86140; 87040; 87070; 87086; 87205; 88304; 88333; 93005; 93010; 93017; 93306; 93312; 96365; 96367; 96375; A9500; J0360; J0696; J1160; J1644; J1650; J1815; J1885; J1940; J2060; J2250; J2270; J2405; J2543; J2704; J2785; J3370; J3370-JW; J3475; J3480; J3490; J7050; J7120; J7620; P9047; Q9967; S0020; U0002